=== PATIENT | female | born 1945 | race Two or more races ===

== ENCOUNTER 2022-01-19 09:31 | Emergency (ER) | payer OTHER ==
[~2022-01-19] VITALS: Ht 152.4 cm; Wt 54.4 kg
[2022-01-19] MEDS ORDERED: PROTONIX20 MG PO (09:47)
[2022-01-19] MEDS ORDERED: LOSARTAN POTASS50 MG PO (09:47)
[2022-01-19] MEDS ORDERED: COZAAR25 MG PO (09:47)
== END 2022-01-19 13:32 | disposition home or self-care (01) ==
LOC: ER 09:31
DX: R30.0 Dysuria (principal); I10 Essential (primary) hypertension